=== PATIENT | male | born 1955 | race Caucasian/White ===

== ENCOUNTER 2017-09-29 15:07 | Emergency (ER) | payer BC ==
[2017-09-29 15:15] VITALS: BP 140/91; PULSE 133; TEMP 98.6; BMI 25.1
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
[2017-09-29] MEDS ORDERED: RABIES VACCINE (PCEC)/PF 2.5 UNIT/VIAL IM ONE (16:36)
[2017-09-29] MEDS ORDERED: RABIES IMMUNE GLOBULIN 300 UNITS/2 ML VIAL IM ONE (16:36)
[2017-09-29] MEDS ORDERED: DIPHTH,PERTUSS(ACELL),TET 0.5 ML DISP.SYRIN IM ONE (16:40)
[2017-09-29] MEDS ORDERED: RABIES IMMUNE GLOBULIN 300 UNITS/2 ML VIAL ONE (16:46)
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
== END 2017-09-29 17:25 | disposition home or self-care (01) ==
LOC: JERFT 15:07
PROC: 3E0234Z Introduction of Serum, Toxoid and Vaccine into Muscle, Percutaneous Approach (ICD-10-PCS; principal; 2017-09-29)
PROC: 3E0234Z Introduction of Serum, Toxoid and Vaccine into Muscle, Percutaneous Approach (ICD-10-PCS; 2017-09-29)
PROC: 3E0234Z Introduction of Serum, Toxoid and Vaccine into Muscle, Percutaneous Approach (ICD-10-PCS; 2017-09-29)
DX: Z20.3 Contact with and (suspected) exposure to rabies (principal); S80.872A Other superficial bite, left lower leg, initial encounter; W64.XXXA Exposure to other animate mechanical forces, initial encounter; Y93.01 Activity, walking, marching and hiking; Y92.89 Other specified places as the place of occurrence of the external cause; Y99.8 Other external cause status
CPT/HCPCS: 90375; 90675; 90715; 99281-25

== ENCOUNTER 2017-10-02 09:39 | Emergency (ER) | payer BC ==
[2017-10-02 09:48] VITALS: BP 126/80; PULSE 83; TEMP 98; BMI 25.1
--- NOTE | 2017-10-02 10:02 | PDOC ---
History of Present Illness - General Chief Complaint: Revisit,Rabies Injection Stated Complaint: RABIES INJECTION Time Seen by Provider: 10/02/17 09:52 - History of Present Illness Initial Comments: 10/02/17 10:25 Chief Complaint: rabies f/u HPI: 62 yo M presents to [facility] for rabies f/u. Patient was bitten by rabid coyote 3 days ago. No break in skin but due to immunocompromised status of patient (pt has DM), patient required full rabies series. ROS: Patient denies any symptoms. Denies fevers, chills, vomiting, diarrhea, or any pain anywhere. PHYSICAL EXAM General Appearance: Well-appearing, appropriately dressed. HEENT: EOMI, PERRLA. No conjunctival pallor. No photophobia, scleral icterus. Respiratory/Chest: Lungs CTAB. Cardiovascular: RRR. S1, S2. Gastrointestinal/Abdominal: Normal bowel sounds. Abdomen soft, non-distended. No tenderness or rebound tenderness. No organomegaly, pulsatile mass, guarding , hernia, hepatomegaly, splenomegaly. Musculoskeletal/Extremities: Normal inspection. FROM of all extremities, normal capillary refill. Pelvis Stable. No CVA tenderness. No tenderness to extremities, pedal edema, swelling, erythema or deformity. Integumentary: Appropriate color, dry, warm. 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 Fully oriented, alert. Appropriate mood/affect. Motor strength 5/5. No appreciable EOM palsy, facial droop or sensory deficit.m Past History - Past Medical History Allergies/Adverse Reactions: Allergies Allergy/AdvReac Type Severity Reaction Status Date / Time No Known Allergies Allergy Verified 10/02/17 09:44 Home Medications: Ambulatory Orders NK [No Known Home Medication] 09/29/17 COPD: No Diabetes: Yes - Immunization History Immunization Up to Date: Yes - Suicide/Smoking/Psychosocial Hx Smoking History: Never smoked Information on smoking cessation initiated: No Hx Alcohol Use: No Drug/Substance Use Hx: No Substance Use Type: None *Physical Exam - Vital Signs Last Vital Signs Temp Pulse Resp BP Pulse Ox 98.0 F 83 18 126/80 100 10/02/17 09:44 10/02/17 09:44 10/02/17 09:44 10/02/17 09:44 10/02/17 09:44 Medical Decision Making - Medical Decision Making 10/02/17 10:53 2nd vax in rabies series given. Patient to return in 1 week for 3rd vax in series. *DC/Admit/Observation/Transfer Diagnosis at time of Disposition: Rabies exposure - Discharge Dispostion Disposition: HOME Condition at time of disposition: Stable Admit: No - Referrals Referrals: No Gann MD [Primary Care Provider] - - Patient Instructions - Post Discharge Activity
[2017-10-02] MEDS ORDERED: RABIES VACCINE (PCEC)/PF 2.5 UNIT/VIAL IM ONE (10:13)
== END 2017-10-02 10:57 | disposition home or self-care (01) ==
LOC: JERFT 09:39
PROC: 3E0234Z Introduction of Serum, Toxoid and Vaccine into Muscle, Percutaneous Approach (ICD-10-PCS; principal; 2017-10-02)
DX: Z20.3 Contact with and (suspected) exposure to rabies (principal); Z23 Encounter for immunization; E11.9 Type 2 diabetes mellitus without complications
CPT/HCPCS: 90675; 99281-25

== ENCOUNTER 2017-10-06 10:05 | Emergency (ER) | payer BC ==
[2017-10-06 10:09] VITALS: BP 113/79; PULSE 105; TEMP 97.8; BMI 25.1
--- NOTE | 2017-10-06 10:35 | PDOC ---
History of Present Illness - General Chief Complaint: Revisit,Rabies Injection Stated Complaint: RABIES INJECTION Time Seen by Provider: 10/06/17 10:35 History Source: Patient Exam Limitations: No Limitations - History of Present Illness Initial Comments: 10/06/17 11:45 Patient here for third rabies vaccination, will require 2 more, history of diabetes. Past History - Past Medical History Allergies/Adverse Reactions: Allergies Allergy/AdvReac Type Severity Reaction Status Date / Time No Known Allergies Allergy Verified 10/06/17 10:06 Home Medications: Ambulatory Orders NK [No Known Home Medication] 09/29/17 COPD: No Diabetes: Yes - Immunization History Immunization Up to Date: Yes - Suicide/Smoking/Psychosocial Hx Smoking History: Never smoked Hx Alcohol Use: No Drug/Substance Use Hx: No Substance Use Type: None Review of Systems - Review of Systems Integumentary: No: Symptoms Reported Hematologic/Lymphatic: No: Symptoms Reported All Other Systems: Reviewed and Negative *Physical Exam - Vital Signs Last Vital Signs Temp Pulse Resp BP Pulse Ox 97.8 F 105 H 18 113/79 95 10/06/17 10:07 10/06/17 10:07 10/06/17 10:07 10/06/17 10:07 10/06/17 10:07 - Physical Exam General Appearance: Yes: Appropriately Dressed. No: Apparent Distress Respiratory/Chest: positive: Lungs Clear, Normal Breath Sounds Cardiovascular: positive: Regular Rhythm, Regular Rate Lymphatic: negative: Adenopathy Integumentary: positive: Normal Color, Dry. negative: Erythema, Swelling, Ecchymosis, Bruising Neurologic: positive: Alert, Normal Mood/Affect Medical Decision Making - Medical Decision Making 10/06/17 11:49 A/P: Patient here for rabies vaccination. Tolerated well, schedule given to patient when to return. Will return as instructed. *DC/Admit/Observation/Transfer Diagnosis at time of Disposition: Rabies exposure, Need for rabies vaccination - Discharge Dispostion Disposition: HOME Condition at time of disposition: Stable - Referrals Referrals: No Gann MD [Primary Care Provider] - - Patient Instructions Printed Discharge Instructions: DI for Rabies Vaccine - Post Discharge Activity Forms/Work/School Notes: Rabies Vaccination F/U Madelyn.
== END 2017-10-06 11:02 | disposition home or self-care (01) ==
LOC: JERFT 10:05
PROC: 3E0234Z Introduction of Serum, Toxoid and Vaccine into Muscle, Percutaneous Approach (ICD-10-PCS; principal; 2017-10-06)
DX: Z23 Encounter for immunization (principal); Z20.3 Contact with and (suspected) exposure to rabies
CPT/HCPCS: 99281-25

== ENCOUNTER 2017-10-13 09:42 | Emergency (ER) | payer BC ==
[2017-10-13 09:50] VITALS: BP 129/93; PULSE 93; TEMP 98; BMI 25.1
[2017-10-13] MEDS ORDERED: RABIES VACCINE (PCEC)/PF 2.5 UNIT/VIAL IM ONE (10:03)
--- NOTE | 2017-10-13 10:06 | PDOC ---
History of Present Illness - General Chief Complaint: Revisit,Rabies Injection Stated Complaint: REVISIT/ INJECTION Time Seen by Provider: 10/13/17 10:03 History Source: Patient Exam Limitations: No Limitations - History of Present Illness Initial Comments: 10/13/17 10:05 pt here for 4th rabies vaccine was exposed to coyote saliva, no bite. Past History - Past Medical History Allergies/Adverse Reactions: Allergies Allergy/AdvReac Type Severity Reaction Status Date / Time No Known Allergies Allergy Verified 10/13/17 09:48 Home Medications: Ambulatory Orders NK [No Known Home Medication] 09/29/17 COPD: No DVT: No Diabetes: Yes - Immunization History Immunization Up to Date: Yes - Suicide/Smoking/Psychosocial Hx Smoking History: Never smoked Information on smoking cessation initiated: No Hx Alcohol Use: No Drug/Substance Use Hx: No Substance Use Type: None *Physical Exam - Vital Signs Last Vital Signs Temp Pulse Resp BP Pulse Ox 98 F 93 H 19 129/93 98 10/13/17 09:46 10/13/17 09:46 10/13/17 09:46 10/13/17 09:46 10/13/17 09:46 - Physical Exam General Appearance: Yes: Nourished, Appropriately Dressed HEENT: positive: EOMI, TITO Integumentary: positive: Normal Color, Dry, Warm Neurologic: positive: Fully Oriented, Alert, Normal Mood/Affect, Normal Response , Motor Strength 5/5 Medical Decision Making - Medical Decision Making 10/13/17 10:05 cc: here for rabies vaccine pt was exposed to a coyote by saliva no actual bite pt tolerating previous rabies vaccines, pt has apt with his PMD on Tuesday10/13/17 10:11 *DC/Admit/Observation/Transfer Diagnosis at time of Disposition: Need for rabies vaccination - Discharge Dispostion Disposition: HOME Condition at time of disposition: Good - Referrals Referrals: No Gann MD [Primary Care Provider] - - Patient Instructions Printed Discharge Instructions: DI for Rabies Vaccine - Post Discharge Activity
== END 2017-10-13 10:30 | disposition home or self-care (01) ==
LOC: JERFT 09:42
PROC: 3E0234Z Introduction of Serum, Toxoid and Vaccine into Muscle, Percutaneous Approach (ICD-10-PCS; principal; 2017-10-13)
DX: Z20.3 Contact with and (suspected) exposure to rabies (principal)
CPT/HCPCS: 90675; 99281-25

== ENCOUNTER 2017-10-27 09:37 | Emergency (ER) | payer BC ==
[2017-10-27 09:44] VITALS: BP 114/72; PULSE 85; TEMP 97.8; BMI 25.1
--- NOTE | 2017-10-27 10:02 | PDOC ---
History of Present Illness - General Chief Complaint: Revisit,Rabies Injection Stated Complaint: REVISIT/ RABIES INJECTION Time Seen by Provider: 10/27/17 09:46 History Source: Patient Exam Limitations: No Limitations - History of Present Illness Initial Comments: 10/27/17 09:57 here foir last Rabies Vaccine- no complaints Timing/Duration: unsure Severity: mild, moderate Associated Symptoms: reports: denies symptoms Past History - Travel Traveled outside of the country in the last 30 days: No Close contact w/someone who was outside of country & ill: No - Past Medical History Allergies/Adverse Reactions: Allergies Allergy/AdvReac Type Severity Reaction Status Date / Time No Known Allergies Allergy Verified 10/27/17 09:40 COPD: No DVT: No Diabetes: Yes - Immunization History Immunization Up to Date: Yes - Suicide/Smoking/Psychosocial Hx Smoking History: Never smoked Hx Alcohol Use: No Drug/Substance Use Hx: No Substance Use Type: None Review of Systems - Review of Systems Able to Perform ROS?: Yes Is the patient limited Latvian proficient: Yes Constitutional: Yes: Symptoms Reported, See HPI HEENTM: No: Symptoms Reported Musculoskeletal: No: Symptoms Reported Integumentary: No: Symptoms Reported Neurological: No: Symptoms reported *Physical Exam - Vital Signs Last Vital Signs Temp Pulse Resp BP Pulse Ox 97.8 F 85 19 114/72 99 10/27/17 09:40 10/27/17 09:40 10/27/17 09:40 10/27/17 09:40 10/27/17 09:40 - Physical Exam General Appearance: Yes: Appropriately Dressed, Apparent Distress HEENT: positive: TITO, Normal ENT Inspection, TMs Normal, Pharynx Normal Neck: positive: Supple Respiratory/Chest: positive: Lungs Clear Gastrointestinal/Abdominal: positive: Normal Bowel Sounds, Soft. negative: Tender Musculoskeletal: positive: Normal Inspection Extremity: positive: Normal Capillary Refill, Normal Inspection Integumentary: positive: Normal Color Neurologic: positive: wheel setter II-XII NML intact, Fully Oriented, Alert, Normal Mood/ Affect, Normal Response, Motor Strength 5/5 *DC/Admit/Observation/Transfer Diagnosis at time of Disposition: Need for rabies vaccination - Discharge Dispostion Disposition: HOME Condition at time of disposition: Stable Admit: No - Referrals Referrals: No Gann MD [Primary Care Provider] - - Patient Instructions Printed Discharge Instructions: DI for Rabies Vaccine - Post Discharge Activity Forms/Work/School Notes: Back to Work
[2017-10-27] MEDS ORDERED: RABIES VACCINE (PCEC)/PF 2.5 UNIT/VIAL IM ONE (10:03)
== END 2017-10-27 10:13 | disposition home or self-care (01) ==
LOC: JERFT 09:37
PROC: 3E0234Z Introduction of Serum, Toxoid and Vaccine into Muscle, Percutaneous Approach (ICD-10-PCS; principal; 2017-10-27)
DX: Z20.3 Contact with and (suspected) exposure to rabies (principal)
CPT/HCPCS: 90675; 99281-25